=== PATIENT | male | born 1945 | race Caucasian/White ===

== ENCOUNTER 2016-09-29 06:13 | Day surgery (SDC) | payer OTHER, BC ==
[2016-09-24 13:32] VITALS: BMI 38.3
[2016-09-29 06:53] VITALS: TEMP 97.6
[2016-09-29] MEDS ORDERED: PROPOFOL 20 ML ONE ×4 (07:02)
[2016-09-29] MEDS ORDERED: SUCCINYLCHOLINE CHLORIDE 200 MG/10 ML VIAL ONE (07:02)
[2016-09-29] MEDS ORDERED: ePHEDrine SULFATE 50 MG/1 ML AMPULE ONE (07:02)
[2016-09-29] MEDS ORDERED: MIDAZOLAM HCL 2 MG/2 ML SINGLE DOSE VIAL ONE (07:03)
[2016-09-29] MEDS ORDERED: LIDOCAINE HCL 2% (20ML MULTI-DOSE VIAL) NR ONE (07:15)
[2016-09-29] MEDS ORDERED: BUPIVACAINE HCL/PF 2.5 MG/ML - 30 ML VIAL IJ ONE (07:15)
[2016-09-29] MEDS ORDERED: ONDANSETRON 4 MG/2 ML VIAL IVPUSH PRN (09:22)
[2016-09-29] MEDS ORDERED: ACETAMINOPHEN 325 MG TABLET (FP) PO PRN (09:22)
[2016-09-29] MEDS ORDERED: oxyCODONE HCL 5 MG TABLET PO PRN (09:22)
[2016-09-29] MEDS ORDERED: LACTATED RINGERS SOLUTION 1,000 ML IV SCH (09:30)
[2016-09-29 09:56] VITALS: PULSE 76
[2016-09-29 09:57] VITALS: BP 118/73
--- NOTE | 2016-10-01 08:24 | OP ---
DATE OF OPERATION: 09/29/2016 PREOPERATIVE DIAGNOSES: 1. Left carpal tunnel syndrome. 2. Left de Quervain tenosynovitis. POSTOPERATIVE DIAGNOSES: 1. Left carpal tunnel syndrome. 2. Left de Quervain tenosynovitis. OPERATIVE PROCEDURE: 1. Left carpal tunnel release. 2. Left de Quervain release. SURGEON: Kiran Gomez MD ANESTHESIA: Local with sedation. COMPLICATIONS: None. ESTIMATED BLOOD LOSS: Minimal. INDICATION FOR PROCEDURE: The patient is a 70-year-old male with the above finding, indicated for operative treatment. Risks, benefits, and alternatives were discussed with the patient at length. Proper informed consent was obtained. DESCRIPTION OF PROCEDURE: After proper identification of the patient and the correct operative site, the patient was brought to the operating room and placed supine on the operative table. Prominences were well padded. Sedation was given by the anesthesiologist. Local anesthesia was given with 2% lidocaine. The left upper extremity was prepped and draped in the usual sterile fashion. A well-padded tourniquet was placed as well as a sterile prep. An Esmarch bandage to exsanguinate the left upper extremity. The tourniquet was inflated to 250 mmHg. A longitudinal incision was made in the proximal aspect of the palm. Incision was taken sharply through the skin with blunt and sharp dissection through the subcutaneous tissues. Palmar fascia was divided longitudinally. Transcarpal ligament was divided longitudinally along with the distal 4 cm of the antebrachial fascia under direct visualization with loupe magnification, providing complete release of the median nerve at the wrist. Wound was irrigated with saline and repaired with a 5-0 nylon suture. Second incision was made transversely over the radial aspect of the wrist. Incision was taken sharply through the skin with blunt and sharp dissection through the subcutaneous tissues. Neurovascular structures were carefully protected. The first dorsal compartment was identified and divided along its dorsal border. Significant stenosis of the compartment was noted, but no subcompartments were noted. The wrist was taken through a range of motion, and there was no subluxation of the tendons. Wound was irrigated with saline and repaired with a 4-0 Vicryl and 4-0 Monocryl suture. Steri-Strips and sterile dressings were applied. The patient was reversed from anesthesia and brought to the recovery room in stable condition. He tolerated the procedure well. Tish [id number]
== END 2016-09-29 10:20 | disposition home or self-care (01) ==
LOC: FASU 06:13
PROVIDERS: ATTEND Orthopaedic Surgery Hand Surgery
PROC: 0L860ZZ Division of Left Lower Arm and Wrist Tendon, Open Approach (ICD-10-PCS; 2016-09-29)
PROC: 01N50ZZ Release Median Nerve, Open Approach (ICD-10-PCS; principal; 2016-09-29 07:52)
DX: G56.02 Carpal tunnel syndrome, left upper limb (principal); M65.4 Radial styloid tenosynovitis [de Quervain]

== ENCOUNTER 2018-06-29 07:07 | Day surgery (SDC) | payer OTHER, BC ==
[2018-06-23 13:34] VITALS: BMI 40.7
[2018-06-29] MEDS ORDERED: EPINEPHrine 1:1,000 1 MG/1 ML - 30ML VIAL (INJECTION) ONE (07:25)
[2018-06-29] MEDS ORDERED: oxyCODONE HCL 5 MG TABLET PO PRN ×2 (07:30)
[2018-06-29] MEDS ORDERED: ACETAMINOPHEN 1000 MG/100 ML VIAL (NON FORMULARY) IVPB ONE (07:30)
[2018-06-29] MEDS ORDERED: LACTATED RINGERS SOLUTION 1,000 ML IV SCH (07:30)
[2018-06-29] MEDS ORDERED: ONDANSETRON 4 MG/2 ML VIAL IVPUSH PRN (07:30)
[2018-06-29] MEDS ORDERED: KETOROLAC TROMETHAMINE 30 MG/1 ML VIAL ONE ×3 (07:53→09:22)
[2018-06-29] MEDS ORDERED: DEXAMETHASONE SOD PHOSPHATE 4 MG/1 ML VIAL ONE ×3 (07:53→09:22)
[2018-06-29] MEDS ORDERED: LIDOCAINE HCL/PF 2% SDV 5ML VIAL ONE ×2 (07:53→09:22)
[2018-06-29] MEDS ORDERED: PROPOFOL 20 ML ONE ×3 (07:54→09:23)
[2018-06-29] MEDS ORDERED: MIDAZOLAM HCL 2 MG/2 ML SINGLE DOSE VIAL ONE ×3 (08:34→10:17)
[2018-06-29] MEDS ORDERED: DEXAMETHASONE SOD PHOSPHATE/PF 10 MG/ML SDV ONE (08:36)
[2018-06-29] MEDS ORDERED: NEOSTIGMINE METHYLSULFATE 0.5 MG/ML - 10 ML MDV ONE (09:15)
[2018-06-29] MEDS ORDERED: ROCURONIUM BROMIDE 50 MG/5 ML VIAL ONE ×2 (09:15→09:22)
[2018-06-29] MEDS ORDERED: GLYCOPYRROLATE 0.2 MG/1 ML VIAL ONE (09:15)
[2018-06-29] MEDS ORDERED: ceFAZolin SODIUM 1 GM VIAL ONE (09:16)
[2018-06-29] MEDS ORDERED: ONDANSETRON 4 MG/2 ML VIAL ONE ×2 (09:18→09:22)
[2018-06-29] MEDS ORDERED: TRANEXAMIC ACID 1000 MG/10 ML VIAL ONE (10:24)
[2018-06-29] MEDS ORDERED: METOPROLOL TARTRATE 5 MG/5 ML VIAL ONE (10:25)
[2018-06-29] MEDS ORDERED: BUPIVACAINE 0.75% IN DEXTROSE/PF 2ML AMPULE NR ONE (11:57)
--- NOTE | 2018-06-29 12:21 | OP ---
Operative Note - Note: Operative Date: 06/29/18 Pre-Operative Diagnosis: Left rotator cuff repair Operation: Left shoulder arthroscopy Post-Operative Diagnosis: Same as Pre-op Anesthesia: General Operative Report Dictated: Yes
--- NOTE | 2018-06-29 13:25 | OP ---
DATE OF OPERATION: 06/29/2018 PREOPERATIVE DIAGNOSES: Left shoulder rotator cuff tear, involving supraspinatus, infraspinatus, subscapularis; biceps tendon rupture; subacromial impingement. POSTOPERATIVE DIAGNOSES: Left shoulder rotator cuff tear, involving supraspinatus, infraspinatus, subscapularis; biceps tendon rupture; subacromial impingement; diffuse synovitis. PROCEDURE: Right shoulder arthroscopy with debridement of the , synovium; repair of the subscapularis, supraspinatus, and infraspinatus; subacromial decompression. SURGEON: Mateus Morris MD HEALTH INFORMATION MANAGER: MAHAMED Charles, whose skillful assistance was necessary for the safe and timely performance of this procedure. Ms. Walker was able to provide limb positioning, retraction, assist in driving the camera, passing of sutures, as well as the insertion of orthopedic fixation hardware. ANESTHESIA: Regional plus general. POSTOPERATIVE CONDITION: Stable. COMPLICATIONS: None. IMPLANTS: Arthrex 4.75 medial-row anchors x2, [employer] lateral anchors, Multifix x2, Arthrex SwiveLock x2. INDICATIONS: This is a pleasant gentleman who had been suffering from shoulder pain, weakness, and dysfunction. MRI found full-thickness, retracted rotator cuff tear. Treatment options including nonoperative management consisting of physical therapy, injections, oral medications, activity modification were discussed. We discussed operative care involved in rotator cuff repair versus superior capsular reconstruction. I reviewed surgical risks in detail including bleeding, infection, neurovascular injury, need for further surgery, postoperative pain and stiffness, failure to heal or re-rupture of the rotator cuff, permanent limitations to motion or function. We discussed medical risks such as heart attack, stroke, DVT, PE, and . I addressed the use of perioperative antibiotic and DVT prophylaxis. I reviewed the postoperative rehabilitation protocol. I addressed all patient's questions and concerns. He voiced understanding and elected to proceed. DESCRIPTION OF PROCEDURE: It should be noted that this procedure involved increased difficulty, increased operative time compared to the typical rotator cuff repair. The reason for the increased difficulties of this case was due to the massive nature of the tear. The increased difficulty was due to the 3 tendons that were torn as opposed to the typical 1- to 2-tendon tear. The tear also involved significant retraction as well as significant synovitis limiting visualization. Typical repairs will be performed with somewhere from 2-4 anchors. This was a 6-anchor repair requiring extra suture fixation due to the large size of the tear. Patient was brought to the operating room after administration of a regional block in the preoperative holding area. Patient was then given general anesthetic with LMA. He was then placed into the beach chair position, careful to pad all bony prominences, maintaining the cervical spine in neutral position. He was placed in slight Trendelenburg to avoid sliding down the table during the procedure. The left upper extremity was examined, demonstrating full range of motion. No instability. Patient was prepped and draped in usual sterile fashion. A preoperative dose of antibiotics was given, and the usual timeout procedure was performed. Bony landmarks were marked out on his shoulder. A posterior viewing portal was now established with an 11 blade. The arthroscope was passed into to glenohumeral joint. Examination of the glenoid and humeral surfaces demonstrated minimal arthritic change. There was diffuse degenerative change about the labrum. The biceps tendon was non-visualized secondary to rupture. The subscapularis was clearly torn completely from the lesser tuberosity. The tear extended involving the comma tissue, extending from the subscapularis to the anterior border of supraspinatus which was fully torn and retracted midway between the greater tuberosity and the glenoid. The tear extended back towards the infraspinatus tendon which was also fully avulsed off of the greater tuberosity. Tear extended back towards the bare area. The infraspinatus was retracted also midway between the greater tuberosity and the glenoid. Initially, attention was turned to the labrum where the superior labrum was debrided utilizing mechanical shaver. This was done by establishing an anterior portal and placing a cannula. This was done under spinal needle localization. The labrum debrided, attention was turned to the subscapularis. An anterolateral portal was now established to aid in debriding the ends of the subscapularis. This was done with a shaver as well. Utilizing electrocautery as well as shaver, the lesser tuberosity was prepared down to a bleeding bed of bone. The greater tuberosity now prepared, second cannula was inserted in the anterolateral portal. Utilizing a FirstPass suture passing device, 3 FiberLink sutures were passed in [id number] fashion on the inferior, middle, and superior portions of the subscapularis. Utilizing the anterolateral portal, the inferior 2 most sutures were loaded onto the SwiveLock anchor. The anchor was punched and then inserted, covering the lesser tuberosity completely with the subscapularis. This procedure was then repeated for the more-superior anchor, fully reducing the subscapularis onto the footprint and securing it quite well. The scope was now taken out of the joint and passed into the subacromial space. Here, significant bursitis was encountered as well as diffuse fraying consistent with impingement. Utilizing the shaver as well as electrocautery through the lateral portal, subacromial decompression was performed as well as bursectomy. The superior surface of the rotator cuff was freed to allow for better mobilization. The greater tuberosity was debrided of any tissue debris and exposed down to bleeding bone as well. Two medial-row anchors were now punched and then inserted on the anterior and posterior aspects of the tear. After adequately mobilizing the rotator cuff, it was able to be drawn over the greater tuberosity without tension. The sutures were now passed in 4 separate passes. One of the 2 anterior suture pairs was tied, and then, one of the 2 posterior suture pairs was tied. The rotator cuff was now sitting over the greater tuberosity and covering its footprint. To provide compression along the more-lateral aspect, the sutures were passed into a crossing pattern. One additional anterior [id number]-nzj-ldus suture was placed in the most-anterior portion of the supraspinatus. These were then loaded into an anterolateral anchor which was malleted in and then tensioned and inserted. This was repeated for a second posterior anchor. At this point, the entire rotator cuff was inspected. It was passed through a range of motion and found to be stable. The portals were now sutured using 3-0 nylon. Sterile dressings were placed. Patient was extubated and transferred to recovery room in stable condition. Tish [id number]
[2018-06-29 13:38] VITALS: TEMP 98.2
[2018-06-29 15:12] VITALS: BP 132/96; PULSE 96
== END 2018-06-29 15:30 | disposition home or self-care (01) ==
LOC: FASU 07:07
PROVIDERS: ATTEND Orthopaedic Surgery Sports Medicine
PROC: 0RBK4ZZ Excision of Left Shoulder Joint, Percutaneous Endoscopic Approach (ICD-10-PCS; 2018-06-29)
PROC: 0LQ24ZZ Repair Left Shoulder Tendon, Percutaneous Endoscopic Approach (ICD-10-PCS; principal; 2018-06-29 09:30)
PROC: 0RNK4ZZ Release Left Shoulder Joint, Percutaneous Endoscopic Approach (ICD-10-PCS; 2018-06-29 09:30)
DX: M75.122 Complete rotator cuff tear or rupture of left shoulder, not specified as traumatic (principal); M66.812 Spontaneous rupture of other tendons, left shoulder; M75.42 Impingement syndrome of left shoulder; M65.812 Other synovitis and tenosynovitis, left shoulder; M75.52 Bursitis of left shoulder
CPT/HCPCS: 82962; 94760

== ENCOUNTER 2020-01-22 11:40 | Emergency (ER) | payer OTHER, BC | END 2020-01-22 12:12 | disposition home or self-care (01) | LOC: JVIRT 11:40 | DX: Z03.818 Encounter for observation for suspected exposure to other biological agents ruled out (principal) | CPT/HCPCS: C9803; G2012-GT; U0003 ==

== ENCOUNTER 2021-11-16 14:32 | Emergency (ER) | payer OTHER, BC ==
[2021-11-16 14:49] VITALS: RESP 20; TEMP 99; BMI 32.8
[2021-11-16 16:41] VITALS: BP 123/62; PULSE 74
[2021-11-16 16:41] LABS: HEMATOCRIT 48.3 % (35.4-49); MCH 29.8 pg (25.7-33.7); MCHC 35.1 g/dl (32.0-35.9); MEAN CELL VOLUME 84.9 fl (80-96); MEAN PLT VOLUME 7.3 fl (7.5-11.1); PLATELET COUNT 245.8 10^3/uL (134-434); RBC 5.69 10^6/uL (4.00-5.60); RDW 14.9 % (11.9-15.9); WHITE BLOOD COUNT 10.1 10^3/uL (4.0-10.8)
[2021-11-16 16:49] LABS: INR 1.12 (0.83-1.09); PROTHROMBIN TIME (PATIENT) 12.9 SEC (9.7-13.0)
[2021-11-16 16:52] LABS: ACTIVATED PTT 31.5 SECONDS (25.2-36.5)
[2021-11-16 16:56] LABS: ALBUMIN 3.6 g/dl (3.4-5.0); BILIRUBIN,TOTAL 0.6 mg/dl (0.2-1); CALCIUM 9.3 mg/dl (8.5-10); CREATININE 0.6 mg/dl (0.55-1.3); TOT PROT 7.6 g/dl (6.4-8.2)
[2021-11-16 17:36] LABS: PLATELET ESTIMATE ADEQUATE
== END 2021-11-16 18:27 | disposition short-term general hospital (02) ==
LOC: FER 14:32
DX: S06.6X0A Traumatic subarachnoid hemorrhage without loss of consciousness, initial encounter (principal); W18.2XXA Fall in (into) shower or empty bathtub, initial encounter; W01.198A Fall on same level from slipping, tripping and stumbling with subsequent striking against other object, initial encounter
CPT/HCPCS: 36415; 70450-TC; 70486-TC; 72125-TC; 80053; 84484; 85027; 85610; 85730; 93005; 99291; C9803-CS; U0003; U0005

== ENCOUNTER 2022-12-03 18:10 | Emergency (ER) | payer OTHER, BC ==
[2022-12-03 18:40] VITALS: BP 128/70; PULSE 102; RESP 18; TEMP 98.3; BMI 32.1
[2022-12-03 19:25] LABS: HEMATOCRIT 50.7 % (35.4-49); HEMOGLOBIN 17.2 G/dL (11.7-16.9); MCH 29.1 pg (25.7-33.7); MCHC 33.9 g/dl (32.0-35.9); MEAN CELL VOLUME 85.8 fl (80-96); MEAN PLT VOLUME 8.2 fl (7.5-11.1); RBC 5.91 10^6/uL (4.00-5.60); RDW 14.7 % (11.9-15.9); WHITE BLOOD COUNT 10.9 10^3/uL (4.0-10.8)
[2022-12-03 19:27] LABS: INR 1.06 (0.83-1.09); PROTHROMBIN TIME (PATIENT) 12.3 SEC (9.7-13.0)
[2022-12-03 19:30] LABS: ACTIVATED PTT 37.5 SECONDS (25.2-36.5)
[2022-12-03 19:40] LABS: PLATELET ESTIMATE ADEQUATE
[2022-12-03] MEDS ORDERED: ASPIRIN 81 MG CHEWABLE TABLETS PO ONE (19:48)
[2022-12-03] MEDS ORDERED: ASPIRIN 81 MG CHEWABLE TABLETS ONE (19:52)
[2022-12-03 20:42] LABS: POTASSIUM 4.2 mmol/L (3.5-5.1)
[2022-12-03 20:45] LABS: CALCIUM 8.6 mg/dL (8.5-10.1)
[2022-12-03 20:46] LABS: ALBUMIN 3.6 g/dl (3.4-5.0); BLOOD UREA NITROGEN 17.1 mg/dL (7-18); MAGNESIUM 1.6 mg/dL (1.8-2.4)
[2022-12-03 20:49] LABS: CREATININE 0.9 mg/dL (0.55-1.3)
[2022-12-03 20:50] LABS: BILIRUBIN,TOTAL 0.5 mg/dL (0.2-1); TOT PROT 7.8 g/dl (6.4-8.2)
[2022-12-03 20:52] LABS: N-TERMINAL BNP 141.1 pg/ml (5-450)
[2022-12-03] MEDS ORDERED: MAGNESIUM OXIDE 400 MG TABLET (FP) PO ONE (21:06)
== END 2022-12-03 21:19 | disposition home or self-care (01) ==
LOC: FER 18:10
DX: R07.89 Other chest pain (principal)
CPT/HCPCS: 36415; 71046-TC-FY; 80053; 83690; 83735; 83880; 84484; 85027; 85610; 85730; 93005; 99285-25